=== PATIENT | male | born 1975 | race American Indian/Alaskan Native ===

== ENCOUNTER 2016-06-25 12:46 | Emergency (ER) | payer SELFPAY ==
--- NOTE | 2016-06-25 13:31 | Emergency Department Report ---
Chief Complaint: Chest Pain Stated Complaint: CHEST PAIN Time Seen by Provider: 06/25/16 13:28 - HPI History of Present Illness: 40-year-old -[place] male comes in complaining of chest pain has been going on for a while. Patient reports that the chest pains getting worse. Patient denies any nausea vomiting or diarrhea has any fever or chills any denies any diaphoresis no radiation nausea. Denies taking any [id number] medication for relief. - Exam Vital Signs: Vital Signs 06/25/16 13:08 Temperature 98.4 F Pulse Rate 90 Respiratory 20 Rate Blood Pressure 161/108 O2 Sat by Pulse 98 Oximetry Physical Exam: Patient's alert and oriented 3 cardiovascular S1-S2 regular rate and rhythm respiratory clear to observation bilateral abdomen soft nontender nondistended bowel sounds in within normal limits MSE screening note: Focused history and physical exam performed. Due to findings the following was ordered: Chest pain protocol has been ordered patient be evaluated in the main ER. ED Disposition for MSE Condition: Stable
[2016-06-25 13:47] LABS: Basophils % (Auto) 1.2 % (0.0-1.8); Eosinophils % (Auto) 5.4 % (0.0-4.3); Hematocrit 45.9 % (35.5-45.6); Hemoglobin 15.5 gm/dl (11.8-15.2); Mean Corpuscular HGB Conc 34 % (32-34); Mean Corpuscular Hemoglobin 29 pg (28-32); Mean Corpuscular Volume 86 fl (84-94); Platelet Count 262 K/mm3 (140-440); Red Blood Count 5.35 M/mm3 (3.65-5.03); Red Cell Distribution Width 14.3 % (13.2-15.2); White Blood Count 6.8 K/mm3 (4.5-11.0)
[2016-06-25 14:06] LABS: Anion Gap 21 mmol/L; Blood Urea Nitrogen 8 mg/dL (9-20); Calcium 9.3 mg/dL (8.4-10.2); Carbon Dioxide 23 mmol/L (22-30); Chloride 97.6 mmol/L (98-107); Glucose 135 mg/dL (75-100); Potassium 3.4 mmol/L (3.6-5.0); Sodium 138 mmol/L (137-145)
[2016-06-25] MEDS ORDERED: TORADOL IM ONE (20:49)
[2016-06-25] MEDS ORDERED: PEPCID PO ONE (20:50)
--- NOTE | 2016-06-25 21:09 | Emergency Department Report ---
HPI - General Chief Complaint: Chest Pain Time Seen by Provider: 06/25/16 13:28 - HPI HPI: The patient is 40-year-old male with a history of uncontrolled hypertension, whom presents for evaluation of chest pain. The patient reports chest pain for the past 2 days, sharp in quality, left-sided, 8/10 in severity, on and off since onset, exacerbated with eating. The patient also has a secondary complaint of intermittent lightheadedness, elicited with standing in physical activity, improved with lying down risk, severe when present, present for more than the past week. The patient has some to the chest wall, fever, dyspnea, syncope, hemoptysis, unilateral leg swelling, oral contraceptive use, recent immobilization, history of DVT or PE, hx cancer. ED Past Medical Hx - Past Medical History Hx Hypertension: Yes Hx Heart Attack/AMI: No Hx Congestive Heart Failure: No Hx Diabetes: No Hx Deep Vein Thrombosis: No Hx Pulmonary Embolism: No Hx Liver Disease: No Hx Renal Disease: No Hx Sickle Cell Disease: No Hx Arthritis: No Hx Seizures: No Hx Kidney Stones: No Hx Asthma: No Hx COPD: No Hx Dementia: No Hx HIV: No - Surgical History Hx Coronary Stent: No Hx Open Heart Surgery: No Hx Pacemaker: No Hx Internal Defibrillator: No Hx Cholecystectomy: No Hx Appendectomy: No Hx Breast Surgery: No - Social History Smoking Status: Current Every Day Smoker Substance Use Type: Alcohol - Medications Home Medications: Home Medications Medication Instructions Recorded Confirmed Last Taken Type Amoxicillin/K Clav Tab [Augmentin 1 tab PO Q12HR #20 tab 11/25/15 Unknown Rx 875 mg] Fluticasone [Flonase] 2 spray NS QDAY #1 bottle 11/25/15 Unknown Rx Omeprazole Magnesium [PriLOSEC Otc] 20 mg PO QDAY #14 tablet. 06/25/16 Unknown Rx amLODIPine [Norvasc] 10 mg PO DAILY #30 tab 06/25/16 Unknown Rx traMADol [Ultram 50 MG tab] 50 mg PO Q6HR PRN #12 tablet 06/25/16 Unknown Rx ED Review of Systems ROS: Stated complaint: CHEST PAIN Other details as noted in HPI Constitutional: denies: fever ENT: denies: throat or neck pain Respiratory: denies: cough, shortness of breath Cardiovascular: denies: chest pain Endocrine: denies unexplained weight loss or gain Gastrointestinal: denies: abdominal pain, nausea Genitourinary: denies: dysuria Musculoskeletal: denies: leg swelling Skin: denies: rash Neurological: denies: headache Hematological/Lymphatic: denies: easy bleeding or easy bruising Psych: denies sadness or hopelessness Physical Exam - Physical Exam Vital Signs: Vital Signs 06/25/16 13:08 Temperature 98.4 F Pulse Rate 90 Respiratory 20 Rate Blood Pressure 161/108 O2 Sat by Pulse 98 Oximetry Physical Exam: General: well-nourished, well-developed, no acute distress Head: Normocephalic, atraumatic Eyes: normal sclera ENT: Mucous membranes are pale and dry Neck: trachea midline, neck supple, No neck stiffness, no cervical adenopathy Respiratory: Breath sounds equal bilaterally, no wheezing, rales, or rhonchi Cardio: S1 and S2 present, no murmurs, rubs, gallops, capillary refill is delayed Abdomen: Normoactive bowel sounds, soft abdomen, no rigidity, no guarding or rebound tenderness Chest WALL/Back: No tenderness to palpation of the chest wall, no CVA tenderness with percussion Musc: No pitting edema Skin: No rash Neuro: no facial drooping, normal speech Psych: Normal affect ED Course Vital Signs 06/25/16 13:08 Temperature 98.4 F Pulse Rate 90 Respiratory 20 Rate Blood Pressure 161/108 O2 Sat by Pulse 98 Oximetry ED Medical Decision Making - Lab Data Result diagrams: 06/25/16 13:33 06/25/16 13:33 - Medical Decision Making The patient was seen and examined by myself. The patient is placed on a through operator and continuous pulse ox. On initial evaluation, the patient was found to be in no distress. EKG was negative for findings suggestive of acute cardiac infarct. Labs and imaging are obtained. The patient is given an IM dose of Toradol for pain. The patient finds IV fluid resuscitation for treatment of his dehydration. Chest x-ray is negative for pneumothorax, focal consolidation, pulmonary vascular congestion, pleural effusion, or other obvious acute cardiopulmonary disease process. Lab results reveal elevated hemoglobin and hematocrit, consistent with hemoconcentration and exam findings of dehydration, and otherwise labs were non-concerning including levels of troponin, electrolytes, renal function. The patient was reevaluated and reported that their symptoms were markedly improved. As the patient has a SUJATHA risk score less than 2, and a well's score less than 2, the patient is at low risk of ACS or pulmonary emboli etiology of their symptoms. The patient is stable for discharge with outpatient follow-up. The patient is given follow-up and return instructions. The patient expressed understanding and agreed with the plan. The patient is discharged in stable condition. Critical care attestation.: If time is entered above; I have spent that time in minutes in the direct care of this critically ill patient, excluding procedure time. ED Disposition Clinical Impression: Acute chest pain, Hypertensive urgency, Dehydration Disposition: DISCHARGED TO HOME OR SELFCARE Is pt being admited?: No Does the pt Need Aspirin: No Condition: Stable Instructions: Chest Pain (ED), Costochondritis (ED), Gastroesophageal Reflux Disease (ED) Prescriptions: amLODIPine [Norvasc] 10 mg PO DAILY #30 tab Omeprazole Magnesium [PriLOSEC Otc] 20 mg PO QDAY #14 tablet. traMADol [Ultram 50 MG tab] 50 mg PO Q6HR PRN #12 tablet PRN Reason: Pain Referrals: PRIMARY CARE, [Primary Care Provider] - 3-5 Days Time of Disposition: 20:52
[2016-06-25 22:29] VITALS: BP 167/108
--- NOTE | 2016-06-26 09:01 | XRay Report ---
CHEST ONE VIEW INDICATION: Chest pain. COMPARISON: 10/23/2008. FINDINGS: Portable, frontal chest radiograph, 2 images, demonstrate normal cardiomediastinal silhouette. Clear lungs. AC joint degenerative changes. Extrinsic EKG leads. CONCLUSION: No acute disease in the chest. Thank you for the opportunity to participate in this patient's care.
== END 2016-06-25 21:15 | disposition home or self-care (01) ==
LOC: ED 12:46
DX: I10 Essential (primary) hypertension (principal); E86.0 Dehydration; F17.200 Nicotine dependence, unspecified, uncomplicated; Z79.1 Long term (current) use of non-steroidal anti-inflammatories (NSAID); Z79.2 Long term (current) use of antibiotics; Z79.899 Other long term (current) drug therapy
CPT/HCPCS: 36415; 71010; 80048; 84484; 85025; 93005; 93010; 96372; 99285; J1885

== ENCOUNTER 2016-11-25 01:17 | Emergency (ER) | payer OTHER ==
[2016-11-25] MEDS ORDERED: CATAPRES PO ONE (01:37)
[2016-11-25] MEDS ORDERED: MOTRIN PO ONE (01:37)
[2016-11-25 01:42] VITALS: BP 192/130
[2016-11-25 02:01] LABS: Eosinophils % (Auto) 2.2 % (0.0-4.3); Hematocrit 45.4 % (35.5-45.6); Hemoglobin 15.4 gm/dl (11.8-15.2); Mean Corpuscular HGB Conc 34 % (32-34); Mean Corpuscular Hemoglobin 29 pg (28-32); Mean Corpuscular Volume 86 fl (84-94); Platelet Count 287 K/mm3 (140-440); Red Blood Count 5.31 M/mm3 (3.65-5.03); White Blood Count 8.1 K/mm3 (4.5-11.0)
[2016-11-25 02:12] LABS: BUN/Creatinine Ratio 7.27; Blood Urea Nitrogen 8 mg/dL (9-20); Calcium 9.6 mg/dL (8.4-10.2); Carbon Dioxide 26 mmol/L (22-30); Glucose 98 mg/dL (75-100)
[2016-11-25 02:13] LABS: Anion Gap 18 mmol/L; Chloride 100.4 mmol/L (98-107); Potassium 3.6 mmol/L (3.6-5.0); Sodium 141 mmol/L (137-145)
--- NOTE | 2016-11-25 03:07 | XRay Report ---
FINAL REPORT PROCEDURE: XR HIP 2-3V LT TECHNIQUE: LEFT hip radiographs, AP and lateral views. HISTORY: LEFT HIP PAIN COMPARISON: No prior studies are available for comparison. FINDINGS: Fracture (s) and/or Dislocation(s): None . Joint space(s): Normal . Soft tissues: Normal . Bone mineralization: Normal . Foreign bodies: None . IMPRESSION: Normal Examination.
== END 2016-11-25 02:35 | disposition left against medical advice (07) ==
LOC: ED 01:17
DX: M25.552 Pain in left hip (principal); Z53.21 Procedure and treatment not carried out due to patient leaving prior to being seen by health care provider
CPT/HCPCS: 36415; 80048; 85025